=== PATIENT | female | born 1970 | race Caucasian/White ===

== ENCOUNTER → 2021-08-31 | Outpatient (CLI) | payer BC | LOC: ECHO 12:45 | DX: I31.3 Pericardial effusion (noninflammatory) (principal) | CPT/HCPCS: ECHO; 93306 ==

== ENCOUNTER → 2022-06-05 | Outpatient (CLI) | payer BC | LOC: HEART 5 14:17 | DX: I31.3 Pericardial effusion (noninflammatory) (principal); I51.89 Other ill-defined heart diseases | CPT/HCPCS: 93306 ==